=== PATIENT | female | born 1990 | race Caucasian/White ===

== ENCOUNTER 2020-08-19 14:12 | Emergency (ER) | payer OTHER ==
[~2020-08-19] VITALS: Ht 170.1 cm; Wt 121.6 kg
[~2020-08-19 14:12] MED LIST: AMOXICILLIN500 MG PO; ULTRAM50 MG PO
[2020-08-19] MEDS ORDERED: PREDNISONE50 MG PO (16:05)
== END 2020-08-19 16:16 | disposition home or self-care (01) ==
LOC: ED 14:12
DX: B34.9 Viral infection, unspecified (principal); Z79.899 Other long term (current) drug therapy; Z20.822 Contact with and (suspected) exposure to COVID-19